=== PATIENT | female | born 1965 | race Caucasian/White ===

== ENCOUNTER 2018-03-04 21:43 | Emergency (ER) | payer MEDICAID ==
[~2018-03-04] VITALS: Ht 167.6 cm; Wt 76.7 kg
[2018-03-04 22:01] VITALS: BP 128/80; Ht 167.6 cm; Wt 76.7 kg
== END 2018-03-04 22:20 | disposition home or self-care (01) ==
LOC: ED 21:43
DX: B02.29 Other postherpetic nervous system involvement (principal); R03.0 Elevated blood-pressure reading, without diagnosis of hypertension